=== PATIENT | male | born 1980 | race Caucasian/White ===

== ENCOUNTER 2016-11-20 20:55 | Emergency (ER) | payer OTHER ==
[2016-11-20 21:14] VITALS: BP 136/93
--- NOTE | 2016-11-20 21:56 | UC ---
Hand/Wrist HPI - HPI Summary HPI Summary: Area on R 3rd finger has been irritated for several weeks. has dry skin from frequent hand washing at work, at first it just seemed red and inflamed. Would occasionally "open up and bleed," pt was applying abx ointment occasionally and bandaging. In the last week or so it has gotten more blistered and angry. Pt denies significant pain or itching. - History Of Current Complaint Chief Complaint: UCSkin Stated Complaint: WOUND ON FINGER Time Seen by Provider: 11/20/16 21:41 Hx Obtained From: Patient ?: No Onset/Duration: Gradual Onset, Lasting Weeks Severity Initially: Mild Severity Currently: Mild Character Of Pain: Dull Alleviating: Nothing Associated Signs And Symptoms: Positive: Negative - Allergies/Home Medications Allergies/Adverse Reactions: Allergies Allergy/AdvReac Type Severity Reaction Status Date / Time No Known Allergies Allergy Verified 11/20/16 21:14 Home Medications: Home Medications Ustekinumab (IV) [Stelara] 11/20/16 [History] PMH/Surg Hx/FS Hx/Imm Hx Previously Healthy: No - psoriasis - Surgical History Surgical History: None - Family History Known Family History: Negative: Blood Disorder - Social History Alcohol Use: Occasionally Substance Use Type: None Smoking Status (MU): Never Smoked Tobacco Review of Systems Constitutional: Negative Skin: Rash Eyes: Negative ENT: Negative Respiratory: Negative Cardiovascular: Negative Gastrointestinal: Negative Genitourinary: Negative Motor: Negative Neurovascular: Negative Musculoskeletal: Negative Neurological: Negative Psychological: Negative All Other Systems Reviewed And Are Negative: Yes Physical Exam Triage Information Reviewed: Yes Appearance: Well-Appearing, No Pain Distress, Well-Nourished Vital Signs: Initial Vital Signs Temp 98.4 F 11/20/16 21:10 Pulse 82 11/20/16 21:10 Resp 12 11/20/16 21:10 BP 136/93 11/20/16 21:10 Pulse Ox 100 11/20/16 21:10 Vital Signs Reviewed: Yes Eye Exam: Normal Eyes: Positive: Conjunctiva Clear ENT Exam: Normal ENT: Positive: Normal ENT inspection, Hearing grossly normal, Pharynx normal, TMs normal Dental Exam: Normal Neck exam: Normal Neck: Positive: Supple, Nontender, No Lymphadenopathy Respiratory Exam: Normal Respiratory: Positive: Chest non-tender, Lungs clear, Normal breath sounds, No respiratory distress, No accessory muscle use Cardiovascular Exam: Normal Cardiovascular: Positive: RRR, No Murmur Musculoskeletal Exam: Normal Neurological Exam: Normal Neurological: Positive: Alert Psychological Exam: Normal Skin: Positive: rashes - R 3rd finger red, bumpy contiguous rash on border of finger next to 2nd finger. No erythema, drainage, streaking, or abscess. Hand/Wrist Course/Dx - Differential Dx/Diagnosis Provider Diagnoses: R 3rd finger dermatitis Discharge - Discharge Plan Condition: Stable Disposition: HOME Prescriptions: Triamcinolone 0.5% OINT * 1 applic TOPICAL BID #1 tube Patient Education Materials: Dermatitis (ED) Additional Instructions: Stop using the antibiotic ointment and don't bandage the area. Try to avoid excess handwashing; use a thick skin cream after washing hands in the middle of the day (not close to using the medicated ointment). Use the steroid medicine for 7-10 days, or until it is cleared up. Please see your primary care provider or a regulatory affairs director if you do not have adequate relief after 10 days of therapy.
== END 2016-11-20 22:08 | disposition home or self-care (01) ==
LOC: UCEAST 20:55
DX: L30.9 Dermatitis, unspecified (principal)
CPT/HCPCS: 99202; G0463

== ENCOUNTER 2018-03-08 14:40 | Emergency (ER) | payer OTHER ==
[2018-03-08 14:57] VITALS: BP 128/85
--- NOTE | 2018-03-08 15:31 | RAD ---
Indication: Right lobe wheezing and crackles. 2 views the chest including dual energy PA views demonstrate no mediastinal shift. Heart is of normal size and configuration. There may be some early airspace disease in the right base versus right atelectasis. Left lung field is clear. IMPRESSION: Increased streaky linear density in the right base may represent some atelectasis or early right lower lobe pneumonia.
--- NOTE | 2018-03-08 15:38 | UC ---
Respiratory Complaint HPI - HPI Summary HPI Summary: 37 y/o male on immunsuppresants for psoriatic eczema presents with 2 weeks f cough, rattle in chest, congestion, green, yellow sputum, no fever, chills, no ear/ sinus cmoplaints. mucinex help. is 34 weeks , no symptoms. - History of Current Complaint Chief Complaint: UCRespiratory Stated Complaint: COUGH Time Seen by Provider: 03/08/18 14:59 Hx Obtained From: Patient Onset/Duration: Gradual Onset, Lasting Weeks, Worse Since - past 2 days Timing: Intermittent Episodes Severity Initially: Moderate Severity Currently: Moderate Pain Intensity: 0 Pain Scale Used: 0-10 Numeric - Allergies/Home Medications Allergies/Adverse Reactions: Allergies Allergy/AdvReac Type Severity Reaction Status Date / Time No Known Allergies Allergy Verified 03/08/18 14:57 Home Medications: Home Medications Guselkumab [Tremfya] 100 mg SQ 03/08/18 [History] PMH/Surg Hx/FS Hx/Imm Hx Previously Healthy: Yes - immunosuppresed due to medications - Surgical History Surgical History: None - Family History Known Family History: Negative: Blood Disorder - Social History Alcohol Use: Occasionally Substance Use Type: None Smoking Status (MU): Never Smoked Tobacco Review of Systems Constitutional: Chills, Fatigue ENT: Sore Throat Respiratory: Shortness Of Breath, Cough Is Patient Immunocompromised?: Yes All Other Systems Reviewed And Are Negative: Yes Physical Exam Triage Information Reviewed: Yes Appearance: Well-Appearing, No Pain Distress, Well-Nourished Vital Signs: Initial Vital Signs Temp 98.2 F 03/08/18 14:53 Pulse 87 03/08/18 14:53 Resp 18 03/08/18 14:53 BP 128/85 03/08/18 14:53 Pulse Ox 97 03/08/18 14:53 Vital Signs Reviewed: Yes Eyes: Positive: Conjunctiva Clear ENT: Positive: Pharyngeal erythema - minimal erythema, TMs normal, Uvula midline. Negative: Tonsillar swelling, Tonsillar exudate, Dental tenderness, Sinus tenderness Neck: Positive: Supple, Nontender, No Lymphadenopathy Respiratory: Positive: Chest non-tender, No respiratory distress, No accessory muscle use, Crackles, Wheezing - right lower lobes Cardiovascular: Positive: RRR, No Murmur, Pulses Normal Abdomen Description: Negative: CVA Tenderness (R), CVA Tenderness (L) Psychological Exam: Normal UC Diagnostic Evaluation - Laboratory O2 Sat by Pulse Oximetry: 97 Respiratory Course/Dx - Course Course Of Treatment: - ANtibiotics as directed. - Follow up with PCP within 1 week for repeat eval and repeat chest x-ray. - Increase fluids, rest. - Good hygiene. cxr- R infiltrates, consistent with pna - Differential Dx/Diagnosis Differential Diagnosis/HQI/PQRI: Bronchitis, Influenza Provider Diagnoses: pneumonia Discharge - Sign-Out/Discharge Documenting (check all that apply): Patient Departure All imaging exams completed and their final reports reviewed: Yes - Discharge Plan Condition: Good Disposition: HOME Prescriptions: levoFLOXacin [Levofloxacin] 750 mg PO DAILY #10 tablet Patient Education Materials: Bacterial Pneumonia (ED) Referrals: No Primary Care Phys,NOPCP [Primary Care Provider] - Additional Instructions: - ANtibiotics as directed - Follow up with PCP within 1 week for repeat eval and repeat chest x-ray - Increase fluids, rest - Good hygiene - Billing Disposition and Condition Condition: GOOD Disposition: Home
== END 2018-03-08 16:02 | disposition home or self-care (01) ==
LOC: UCEAST 14:40
DX: J18.9 Pneumonia, unspecified organism (principal); L30.8 Other specified dermatitis; Z88.8 Allergy status to other drugs, medicaments and biological substances; Z79.899 Other long term (current) drug therapy
CPT/HCPCS: 71046; 99212; G0463